=== PATIENT | male | born 1990 | race Caucasian/White ===

== ENCOUNTER 2019-03-05 14:44 | Emergency (ER) | payer MEDICAID, OTHER ==
[~2019-03-05] VITALS: Ht 177.8 cm; Wt 88.5 kg
[2019-03-05 14:58] VITALS: BP_SYST 120
[2019-03-05] MEDS ORDERED: IBUPROFEN 800 MG TABLET PO ONE (15:30)
[2019-03-05 16:21] VITALS: BP_SYST 127
== END 2019-03-05 16:27 | disposition home or self-care (01) ==
LOC: SED 14:44
DX: S50.02XA Contusion of left elbow, initial encounter (principal); F12.90 Cannabis use, unspecified, uncomplicated; V18.4XXA Pedal cycle driver injured in noncollision transport accident in traffic accident, initial encounter; Y93.89 Activity, other specified; Y92.89 Other specified places as the place of occurrence of the external cause; Y99.8 Other external cause status
CPT/HCPCS: 73090; 99283